=== PATIENT | female | born 1950 | race Caucasian/White ===

== ENCOUNTER 2019-01-22 09:56 | Emergency (ER) | payer BC, MEDICARE ==
[2019-01-22 10:21] VITALS: BP 134/79
--- NOTE | 2019-01-22 11:10 | UC ---
Skin Complaint HPI - HPI Summary HPI Summary: 68-year-old female with history of psoriasis presents complaining of onset of 2 erythematous, pruritic lesions to her right pinky and left index fingers that started 4 days ago. Denies changes in medications, detergent, soaps, lotions, cosmetics, diet, or known contact with environmental irritants. - History of Current Complaint Chief Complaint: UCSkin Time Seen by Provider: 01/22/19 10:51 Stated Complaint: RASH Hx Obtained From: Patient Pain Intensity: 0 - Allergy/Home Medications Allergies/Adverse Reactions: Allergies Allergy/AdvReac Type Severity Reaction Status Date / Time codeine Allergy Tingling Verified 01/22/19 10:17 Home Medications: Home Medications Levothyroxine TAB* [Synthroid TAB*] 100 mcg PO DAILY 01/22/19 [History Confirmed 01/22/19] Simvastatin [Zocor] 20 mg PO DAILY 01/22/19 [History Confirmed 01/22/19] PMH/Surg Hx/FS Hx/Imm Hx - Additional Past Medical History Additional PMH: psoriasis Endocrine History: Thyroid Disease, Dyslipidemia - Surgical History Surgical History: None - Family History Known Family History: Positive: Non-Contributory - Social History Occupation: Retired Lives: With Family Alcohol Use: None Substance Use Type: None Smoking Status (MU): Never Smoked Tobacco Review of Systems All Other Systems Reviewed And Are Negative: Yes Constitutional: Negative: Fever, Chills Skin: Positive: Other - See HPI Respiratory: Positive: Negative Cardiovascular: Positive: Negative Gastrointestinal: Positive: Negative Genitourinary: Positive: Negative Musculoskeletal: Negative: Arthralgia, Edema Neurological: Positive: Negative Is Patient Immunocompromised?: No Physical Exam - Summary Physical Exam Summary: GENERAL APPEARANCE: Well developed, well nourished, alert and cooperative, and appears to be in no acute distress. CARDIAC: Normal S1 and S2. No S3, S4 or murmurs. Rhythm is regular. There is no peripheral edema, cyanosis or pallor. Extremities are warm and well perfused. Capillary refill is less than 2 seconds. Peripheral pulses intact. LUNGS: Clear to auscultation without rales, rhonchi, wheezing or diminished breath sounds. ABDOMEN: Positive bowel sounds. Soft, nondistended, nontender. No guarding or rebound. No masses or hepatosplenomegally. MUSKULOSKELETAL: ROM intact to all extremities. No joint erythema or tenderness. Normal muscular development. Normal gait. SKIN: 2 erythematous plaques less than 1 cm in diameter at the base of her right pinky finger and to the lateral aspect of her left index finger at the PIP Triage Information Reviewed: Yes Vital Signs: Initial Vital Signs Temp 97.8 F 01/22/19 10:15 Pulse 68 01/22/19 10:15 Resp 17 01/22/19 10:15 BP 134/79 01/22/19 10:15 Pulse Ox 100 01/22/19 10:15 Vital Signs Reviewed: Yes Course/Dx - Course Course Of Treatment: 68-year-old female with history of psoriasis presents complaining of onset of 2 erythematous, pruritic lesions to her right pinky and left index fingers that started 4 days ago. Denies changes in medications, detergent, soaps, lotions, cosmetics, diet, or known contact with environmental irritants. Afebrile. Vital signs stable. Exam reveals an adult female in no acute distress with 2 erythematous plaques less than 1 cm in diameter at the base of her right pinky finger and to the lateral aspect of her left index finger at the PIP and otherwise unremarkable exam. I suspect that these lesions are related to her psoriasis although I cannot rule out the possibility of a contact dermatitis. I 'm recommending that she use the clobetasol ointment that she has been prescribed for use with her psoriasis. She is to follow-up with her primary care provider in 7 days if symptoms do not improve. Anticipatory guidance and warning symptoms were reviewed with the patient. Verbalizes understanding and agrees with plan of care. - Differential Diagnoses - Skin Complaint Differential Diagnoses: Cellulitis, Contact Dermatitis, Local Allergic Reaction , MRSA, Tinea, Urticaria, Other - psoriasis - Diagnoses Provider Diagnosis: Dermatitis Discharge - Sign-Out/Discharge Documenting (check all that apply): Patient Departure All imaging exams completed and their final reports reviewed: No Studies - Discharge Plan Condition: Stable Disposition: HOME Patient Education Materials: Dermatitis (ED) Referrals: Raul Dunn MD [Primary Care Provider] - 7 Days (If no improvement.) Additional Instructions: I suspect that the lesions on your fingers are likely related to your psoriasis or may be from a contact dermatitis. Try using your clobetasol ointment. Apply a thin layer to the affected areas twice a day. Use a moisturizing lotion after applying the clobetasol ointment. Return here or follow up with your primary care provider in 7 days if no improvement. Sooner if symptoms worsen. - Billing Disposition and Condition Condition: STABLE Disposition: Home - Attestation Statements Provider Attestation: Per institutional requirements, I have reviewed the chart, however, I was not consulted specifically or made aware of this patient by the midlevel provider. I did not personally evaluate, interact with , or disposition this patient.
== END 2019-01-22 11:15 | disposition home or self-care (01) ==
LOC: UCCORT 09:56
DX: L30.9 Dermatitis, unspecified (principal); L40.9 Psoriasis, unspecified; E78.5 Hyperlipidemia, unspecified; E07.9 Disorder of thyroid, unspecified; Z88.5 Allergy status to narcotic agent; Z79.899 Other long term (current) drug therapy
CPT/HCPCS: 99211; G0463